=== PATIENT | female | born 1965 ===

== ENCOUNTER 2016-09-19 06:18 | Day surgery (SDC) | payer MEDICAID ==
[2016-09-19 07:09] VITALS: BMI 30.7
[2016-09-19] MEDS ORDERED: Lactated Ringer's 500 ML IV ONE ×2 (07:58)
[2016-09-19] MEDS ORDERED: Propofol 10 mg/ml Inj (20 ML) ONE (08:00)
[2016-09-19] MEDS ORDERED: Lactated Ringer's 500 ML IV SCH (08:15)
[2016-09-19 10:01] VITALS: TEMP 98
[2016-09-19 10:03] VITALS: O2SAT 99
[2016-09-19 11:01] VITALS: BP 128/80; PULSE 48; RESP 20
== END 2016-09-19 10:00 | disposition home or self-care (01) ==
LOC: C.ENDO 06:18
PROVIDERS: ATTEND Internal Medicine
DX: K29.70 Gastritis, unspecified, without bleeding (principal); K57.90 Diverticulosis of intestine, part unspecified, without perforation or abscess without bleeding; K64.8 Other hemorrhoids
CPT/HCPCS: 43239; 45378; 88305; J2704; J3010; J7120